=== PATIENT | male | born 1945 | race Caucasian/White ===

== ENCOUNTER 2020-11-10 18:42 | Emergency (ER) | payer MEDICARE, BC ==
[2020-11-10] MEDS ORDERED: EPINEPHrine 1 MG/ML SDV SUBCUT ONE (18:52)
[2020-11-10] MEDS ORDERED: methylPREDNISolone Sodium Succinate 125 MG/2 ML SDV IVPUSH ONE (18:52)
[2020-11-10] MEDS ORDERED: diphenhydrAMINE 50 MG/ML SDV IVPUSH ONE (18:52)
--- NOTE | 2020-11-10 18:57 | EDM.PDOC ---
ED HPI GENERAL MEDICAL PROBLEM - General Chief Complaint: Allergic Reaction Stated Complaint: ALLERGIC REACTION Time Seen by Provider: 11/10/20 18:54 Source of Information: Reports: Patient History Limitations: Reports: No Limitations - History of Present Illness INITIAL COMMENTS - FREE TEXT/NARRATIVE: pt arrived with a allergic reaction. He had eaten at [employer] at about 1 pm. He then went [place]. About 4 pm he noticed getting red all over and having hives. He felt itchy but he did not have any airway problems. Onset: Today, Sudden Duration: Hour(s):, Other ( started at 4 pm. ) Location: Reports: Generalized Associated Symptoms: Reports: Other (lite headed. ) - Related Data Allergies Allergy/AdvReac Type Severity Reaction Status Date / Time No Known Allergies Allergy Verified 11/10/20 18:59 Home Meds: Home Meds . [Unable to Verify Home Med List] 11/10/20 [History] ED ROS ALLERGIC REACTION - Review of Systems Review Of Systems: See Below Constitutional: Reports: No Symptoms HEENT: Reports: No Symptoms Respiratory: Reports: No Symptoms Cardiovascular: Reports: No Symptoms Endocrine: Reports: No Symptoms GI/Abdominal: Reports: No Symptoms : Reports: No Symptoms Musculoskeletal: Reports: No Symptoms Skin: Reports: Rash, Change in Color, Urticaria Neurological: Reports: No Symptoms Psychiatric: Reports: No Symptoms ED EXAM GENERAL NO PERIP PULSE - Physical Exam Exam: See Below Text/Narrative:: pt arrived covered with hives with a very red reaaction total body. He was itching all over. He did not have airway issues. Exam Limited By: No Limitations General Appearance: Alert, Anxious, Moderate Distress Ears: Normal TMs Nose: Normal Inspection Throat/Mouth: Normal Inspection, Other ( tongue was not swollen) Head: Atraumatic Neck: Normal Inspection Respiratory/Chest: No Respiratory Distress Cardiovascular: Regular Rate, Rhythm, Tachycardia GI/Abdominal: Soft, Non-Tender (Male) Exam: Deferred Rectal (Males) Exam: Deferred Back Exam: Normal Inspection Extremities: Other (pt was wearing sandals and he has redness and like a bite on both sides of his feet. ) Neurological: Alert, Oriented Course - Vital Signs Last Recorded V/S: Last Vital Signs Temp 36.8 C 11/10/20 19:00 Pulse 81 11/10/20 19:41 Resp 16 11/10/20 19:41 BP 143/65 H 11/10/20 19:41 Pulse Ox 95 11/10/20 19:41 - Orders/Labs/Meds Orders: Active Orders 24 hr Category Date Time Status Sodium Chloride 0.9% [Normal Saline] 1,000 ml Med 11/10/20 19:00 Active IV ASDIRECTED Medication Orders Sodium Chloride (Normal Saline) 1,000 mls @ 999 mls/hr IV ASDIRECTED MADI Last Admin: 11/10/20 18:57 Dose: 999 mls/hr Documented by: CHITRAOR Meds: Medications Generic Name Dose Route Start Last Admin Trade Name Freq PRN Reason Stop Dose Admin Sodium Chloride 1,000 mls @ 999 mls/hr 11/10/20 19:00 11/10/20 18:57 Normal Saline IV 999 mls/hr ASDIRECTED MADI Administration Discontinued Medications Generic Name Dose Route Start Last Admin Trade Name Freq PRN Reason Stop Dose Admin Diphenhydramine HCl 25 mg 11/10/20 18:52 11/10/20 18:56 Diphenhydramine 50 Mg/Ml Sdv IVPUSH 11/10/20 18:53 25 mg ONETIME ONE Administration Diphenhydramine HCl 50 mg 11/10/20 19:42 11/10/20 20:00 Diphenhydramine 25 Mg Cap PO 11/10/20 19:43 50 mg ONETIME ONE Administration Epinephrine HCl 0.3 mg 11/10/20 18:52 11/10/20 18:57 Epinephrine 1 Mg/Ml Sdv SUBCUT 11/10/20 18:53 0.3 mg ONETIME ONE Administration Methylprednisolone Sodium Succinate 125 mg 11/10/20 18:52 11/10/20 18:56 Methylprednisolone Sodium Succinate 125 Mg/2 Ml Sdv IVPUSH 11/10/20 18:53 125 mg ONETIME ONE Administration - Re-Assessments/Exams Free Text/Narrative Re-Assessment/Exam: 11/10/20 20:21 pt was given epi .3 , solumedrol 125 and benadryl a total of 75 mg. The redness total body is better but he continues to have redness and itching on both sides of his feet. Departure - Departure Time of Disposition: 20:17 Disposition: Home, Self-Care 01 Condition: Fair Clinical Impression: Allergic reaction - Discharge Information Referrals: PCP,None [Primary Care Provider] - Forms: ED Department Discharge Care Plan Goals: cool pack both feet, benadryl 50 mg q6h for at least 3-4 more doses, rtc if problems. Sepsis Event Note (ED) - Focused Exam Vital Signs: Vital Signs Temp Pulse Resp BP Pulse Ox 11/10/20 19:41 81 16 143/65 H 95 11/10/20 19:00 36.8 C 75 18 134/67 94 L - My Orders Last 24 Hours: My Active Orders 11/10/20 19:00 Sodium Chloride 0.9% [Normal Saline] 1,000 ml IV ASDIRECTED - Assessment/Plan Last 24 Hours: My Active Orders 11/10/20 19:00 Sodium Chloride 0.9% [Normal Saline] 1,000 ml IV ASDIRECTED
[2020-11-10] MEDS ORDERED: Sodium Chloride 0.9% 1,000 ML IV SCH (19:00)
[2020-11-10] MEDS ORDERED: diphenhydrAMINE 25 MG Cap PO ONE (19:42)
== END 2020-11-10 20:39 | disposition home or self-care (01) ==
LOC: JP.ED 18:42
DX: T78.40XA Allergy, unspecified, initial encounter (principal)
CPT/HCPCS: 96372; 96374; 96375; 99283; A9270; J0171; J1200; J2930; J7030